=== PATIENT | female | born 1975 | race Caucasian/White ===

== ENCOUNTER 2018-09-17 09:22 | Emergency (ER) | payer SELFPAY ==
[~2018-09-17] VITALS: Ht 165.1 cm; Wt 92.0 kg
[2018-09-17 09:27] VITALS: Ht 165.1 cm; Wt 92.0 kg
--- NOTE | 2018-09-17 10:07 | ERD ---
ER Documentation Chief Complaint Chief Complaint Pt with CP since yesterday and LLQ AP X 5 months. HPI This is a pleasant 43-year-old female presents for evaluation epigastric pain, and left lower quadrant pain for about the last 5 months. States that this pain has been intermittently going on, for several months, and it radiates up to her epigastric area, she had a pelvic ultrasound done by her PMD, which per the patient was normal, but she continues to have the pain, described as burning. She states that she feels chest pain, but feels like it comes from below. No nausea or vomiting, no diarrhea, no vaginal bleeding, no weight loss. ROS All systems reviewed and are negative except as per history of present illness. Medications Home Meds Reported Medications [None] No Conflict Check 12/18/11 Allergies Allergies: Uncoded Allergies: NONE (Allergy, 12/18/11) PMhx/Soc History of Surgery: No Anesthesia Reaction: No Hx Respiratory Disorders: No Hx Cardiac Disorders: No Hx Psychiatric Problems: No Hx Miscellaneous Medical Probl: No Hx Alcohol Use: No Hx Substance Use: No Hx Tobacco Use: No Physical Exam Vitals Vital Signs Date Temp Pulse Resp B/P (MAP) Pulse Ox O2 O2 Flow FiO2 Time Delivery Rate 09/17/18 98.9 66 18 154/91 97 09:27 (112) Physical Exam Const: Well-developed, well-nourished nontoxic appearing Head: Atraumatic Eyes: Normal Conjunctiva ENT: Normal External Ears, Nose and Mouth. Neck: Full range of motion. No meningismus. Resp: Clear to auscultation bilaterally Cardio: Regular rate and rhythm, no murmurs Abd: Soft, there is mild tenderness in left lower quadrant, no rebound or guarding, non distended. Normal bowel sounds Skin: No petechiae or rashes Back: No midline or flank tenderness Ext: No cyanosis, or edema Neur: Awake and alert Psych: Normal Mood and Affect Result Diagram: 09/17/18 1015 09/17/18 1015 Results 24 hrs Laboratory Tests Test 09/17/18 10:15 09/17/18 10:27 White Blood Count 6.5 10^3/ul Red Blood Count 4.36 10^6/ul Hemoglobin 12.9 g/dl Hematocrit 39.7 % Mean Corpuscular Volume 91.1 fl Mean Corpuscular Hemoglobin 29.6 pg Mean Corpuscular Hemoglobin Concent 32.5 g/dl Red Cell Distribution Width 15.7 % Platelet Count 222 10^3/UL Mean Platelet Volume 10.9 fl Immature Granulocytes % 0.200 % Neutrophils % 62.2 % Lymphocytes % 26.6 % Monocytes % 7.0 % Eosinophils % 3.8 % Basophils % 0.2 % Nucleated Red Blood Cells % 0.0 /100WBC Immature Granulocytes # 0.010 10^3/ul Neutrophils # 4.1 10^3/ul Lymphocytes # 1.7 10^3/ul Monocytes # 0.5 10^3/ul Eosinophils # 0.3 10^3/ul Basophils # 0.0 10^3/ul Nucleated Red Blood Cells # 0.0 10^3/ul Sodium Level 142 mmol/L Potassium Level 3.7 mmol/L Chloride Level 108 mmol/L Carbon Dioxide Level 22 mmol/L Anion Gap 12 Blood Urea Nitrogen 9 mg/dl Creatinine 0.48 mg/dl Est Glomerular Filtrat Rate mL/min > 60 mL/min Glucose Level 119 mg/dl Calcium Level 9.6 mg/dl Total Bilirubin 1.7 mg/dl Direct Bilirubin 0.00 mg/dl Indirect Bilirubin 1.7 mg/dl Aspartate Amino Transf (AST/SGOT) 35 IU/L Alanine Aminotransferase (ALT/SGPT) 46 IU/L Alkaline Phosphatase 80 IU/L Troponin I < 0.012 ng/ml Total Protein 8.1 g/dl Albumin 4.4 g/dl Globulin 3.70 g/dl Albumin/Globulin Ratio 1.18 Lipase 79 U/L Bedside Urine pH (LAB) 6.0 Bedside Urine Protein (LAB) Negative Bedside Urine Glucose (UA) Negative Bedside Urine Ketones (LAB) Negative Bedside Urine Blood 1+ Bedside Urine Nitrite (LAB) Negative Bedside Urine Leukocyte Esterase (L Negative POC Beta HCG, Qualitative NEGATIVE Procedures/MDM 43-year-old female presents for chest pain, and left lower quadrant pain. Suspect her chest pain, is most likely radiating pain, initiating from her left lower quadrant area, she has been having the symptoms for about the last 5 months, I suspect they are most likely GI in origin, a gynecologic pathology is less likely, particularly given that she recently had an ultrasound. Given her age and female gender, atypical chest pain is a consideration, and a cardiac wor k-up was ordered, additionally labs and CT abdomen pelvis were ordered to evaluate for intra-abdominal pathology. EKG: Rate/Rhythm: Normal Sinus Rhythm QRS, ST, T-waves: No changes consistent w/ acute ischemia Impression: No evidence of ischemia or arrhythmia 11:11 AM: Patient's work-up returned unremarkable, CT abdomen pelvis showed no acute findings, and labs all within normal limits, at this point I feel patient stable for discharge home with outpatient follow-up, at discharge she was in no distress, and serial abdominal exams were benign. Departure Diagnosis: Primary Impression: Chest pain Chest pain type: unspecified Qualified Codes: R07.9 - Chest pain, unspecified Additional Impression: Abdominal pain Abdominal location: unspecified location Qualified Codes: R10.9 - Unspecified abdominal pain Condition: Stable TRAMAINE WANG MD Sep 17, 2018 10:07
[2018-09-17 11:25] VITALS: BP 93/79; PULSE 61; RESP 16
== END 2018-09-17 11:30 | disposition home or self-care (01) ==
LOC: E/R 09:22
DX: R07.9 Chest pain, unspecified (principal); R10.32 Left lower quadrant pain; R10.13 Epigastric pain
CPT/HCPCS: 36415; 71045; 74176; 80053; 81003; 81025; 83690; 84484; 85025; 93005